=== PATIENT | female | born 1985 | race Caucasian/White ===

== ENCOUNTER 2018-07-29 19:19 | Emergency (ER) | payer OTHER ==
[~2018-07-29] VITALS: Ht 170.2 cm; Wt 97.5 kg
[~2018-07-29 19:19] MED LIST: AZITHROMYCIN 2250 MG PO; CARAFATE 1 GM TA1 G1 PO; CIPRO500 MG PO; HYDROCODONE-AP1 EAC6 PO; LEVAQUIN 500 M500 M2 PO; NORCO 5-325 TA1 EACH PO; SPRINTEC1 EACH; ZOFRAN ODT4 M1 PO; ZOFRAN ODT4 MG PO; birth control
[2018-07-29 19:39] LABS: URINE BLOOD TRACE (Negative); URINE CLARITY CLEAR; URINE COLOR YELLOW; URINE GLUCOSE-RANDOM NEGATIVE (Negative); URINE KETONES TRACE (Negative); URINE LEUKOCYTES-REFLEX 1+ (Negative); URINE NITRITE-REFLEX NEGATIVE (Negative); URINE PROTEIN NEGATIVE (Negative); URINE SPECIFIC GRAVITY 1.025 (1.005-1.030); URINE UROBILINOGEN 0.2 E.U./dl (0.2-1.0)
[2018-07-29 19:45] LABS: URINE BILIRUBIN 1+ (Negative)
[2018-07-29 19:47] LABS: ICTOTEST (BILI CONFIRMATORY) Negative (Negative)
[2018-07-29 19:48] LABS: BACTERIA-REFLEX None Seen /HPF (None Seen); CASTS None Seen /LPF (None Seen); CRYSTALS None Seen /LPF (None Seen); SQUAMOUS 0-3 Few /LPF (0-3); URINE RBC 0-2 Rare /HPF (0-2); URINE WBC-REFLEX 6-15 Few /HPF (0-5)
[2018-07-29 19:53] LABS: HEMATOCRIT 45.3 % (37.0-47.0); HEMOGLOBIN 15.5 gm/dL (12.0-15.0); MCH 29.6 pg (26.0-34.0); MCHC 34.2 g/dL (28.0-37.0); MCV 86.6 fL (80.0-100.0); MPV 9.6 fl. (7.2-11.1); NUCLEATED RBCS 0 /100WBC; PLATELET COUNT* 213 thou/uL (150-400); RBC 5.23 mil/uL (4.20-5.00); WBC 16.2 thou/uL (4.0-11.0)
[2018-07-29 20:02] LABS: CALCIUM 8.6 mg/dL (8.5-10.1); CREATININE 0.8 mg/dL (0.6-1.3)
[2018-07-29 20:06] LABS: ALBUMIN 3.9 g/dL (3.4-5.0); TOTAL BILIRUBIN 0.6 mg/dL (<0.1-1.0); TOTAL PROTEIN 7.7 g/dL (6.4-8.2)
[2018-07-29 20:24] LABS: ABSOLUTE LYMPHOCYTES 0.3 thou/uL (0.8-5.3); ABSOLUTE MONOCYTES 0.5 thou/uL (0.0-1.2); ABSOLUTE NEUTROPHILS 15.4 thou/uL (1.6-8.1)
[2018-07-29 20:25] LABS: PLATELET ESTIMATE ADEQUATE
[2018-07-29] MEDS ORDERED: ZOFRAN ODT4 MG PO ×2 (21:51→21:52)
[2018-07-29] MEDS ORDERED: OSELB75 PO ×2 (21:51→21:52)
[2018-07-29] MEDS ORDERED: BENTYL 20 MG TA20 M1 PO ×2 (21:51→21:52)
[2018-07-29] MEDS ORDERED: MACROBID 100 M100 M1 PO (21:52)
[2018-07-29 22:18] VITALS: BP 122/72
== END 2018-07-29 22:19 | disposition home or self-care (01) ==
LOC: M.ERS 19:19
PROVIDERS: Nurse Practitioner Family
DX: K52.9 Noninfective gastroenteritis and colitis, unspecified (principal); Z20.828 Contact with and (suspected) exposure to other viral communicable diseases; F17.210 Nicotine dependence, cigarettes, uncomplicated

== ENCOUNTER → 2018-08-12 | Outpatient (CLI) | payer OTHER ==
[~2018-08-12] MED LIST changes: +BENTYL 20 MG TA20 M1 PO; +MACROBID 100 M100 M1 PO; +OSELB75 PO
== END ==
LOC: M.ULTRA 07:03
DX: K80.20 Calculus of gallbladder without cholecystitis without obstruction (principal); K76.0 Fatty (change of) liver, not elsewhere classified; R16.0 Hepatomegaly, not elsewhere classified